=== PATIENT | female | born 1995 | race Caucasian/White ===

== ENCOUNTER 2019-05-22 20:30 | Emergency (ER) | payer MEDICAID ==
[~2019-05-22] VITALS: Ht 167.6 cm; Wt 63.0 kg
[~2019-05-22 20:30] MED LIST: LIDOcaine 1% W/epiNEPHrine 1:100,000 20ml vial ONE
[2019-05-22 20:34] VITALS: BP 125/72
[2019-05-22] MEDS ORDERED: SULF1TAB49 PO (21:23)
== END 2019-05-22 21:38 | disposition home or self-care (01) ==
LOC: ER 20:32
DX: L02.31 Cutaneous abscess of buttock (principal); L03.317 Cellulitis of buttock; Z91.040 Latex allergy status; Z88.8 Allergy status to other drugs, medicaments and biological substances; Z79.899 Other long term (current) drug therapy
CPT/HCPCS: 10060; 99284

== ENCOUNTER 2019-10-01 01:24 | Emergency (ER) | payer MEDICAID ==
[~2019-10-01] VITALS: Ht 167.6 cm; Wt 70.5 kg
[2019-10-01 01:31] VITALS: BP 137/111
[2019-10-01] MEDS ORDERED: proparacaine 0.5% ophthalmic drops 15ml EACHEYE ONE (01:45)
== END 2019-10-01 02:16 ==
LOC: ER 01:24
DX: H57.11 Ocular pain, right eye (principal); M25.561 Pain in right knee; Z72.89 Other problems related to lifestyle; Z91.040 Latex allergy status; Z79.899 Other long term (current) drug therapy
CPT/HCPCS: 99283

== ENCOUNTER 2021-06-13 12:30 | Emergency (ER) | payer MEDICAID ==
[~2021-06-13] VITALS: Ht 162.6 cm; Wt 63.6 kg
[2021-06-13] MEDS ORDERED: carBAMazepine 100mg chewable tablet PO ONE (12:40)
[2021-06-13 13:12] LABS: HCG SERUM QL NEGATIVE
[2021-06-13 13:15] VITALS: BP 111/73
--- NOTE | 2021-06-13 14:05 | NUR ---
patient gave wrong name, registration will merge account after dc complete. instructed to administer meds under this name and account, unable to change at this time.
== END 2021-06-13 14:20 ==
LOC: EDUNIT# 12:30 → ER 12:30
DX: M54.50 Low back pain, unspecified (principal); G89.29 Other chronic pain; R56.9 Unspecified convulsions; R51.9 Headache, unspecified; Z86.69 Personal history of other diseases of the nervous system and sense organs; Z72.89 Other problems related to lifestyle; Z91.040 Latex allergy status; Z88.8 Allergy status to other drugs, medicaments and biological substances
CPT/HCPCS: 36415; 72100; 84703; 99284